=== PATIENT | male | born 1950 | race Caucasian/White ===

== ENCOUNTER 2023-10-28 16:30 | Inpatient (IN) | payer MEDICARE, SELFPAY ==
[2023-10-28 12:27] VITALS: BP 131/57
--- NOTE | 2023-10-28 12:50 | ED.GENMED ---
History of Present Illness
General
Chief Complaint: Anal/Rectal Problem
Source: patient and other (Harlan text note)
Time Seen by Provider: 10/28/23 12:38
Travel History
Have you had any contact with someone who has COVID-19?: No
Do you have any symptoms of coronavirus? Fever > 100 degrees, chills, cough, shortness of breath, sore throat, loss of taste or smell, muscle aches, or headache?: No
History of Present Illness
History of Present Illness:
73-year-old male complaining of rectal pain. Started Friday. Progressive in nature. Difficulty having a bowel movement. Like he went into urinary retention around 4 AM. No fever however some chills at times. No vomiting.
Past History
Past History
ED Past Medical History: Arrthythmia (afib), HTN and Valvular disease
ED Past Surgical History: Cardiac
Social History
Tobacco: Non-smoker
Alcohol: Daily
Personal:
Living: with family
Employment: Employed
Family History
Family History: Hypertension
Review of Systems
Review of Systems
All Other Systems: Not applicable
Constitutional: Reports chills; Denies fever
Respiratory: Reports no symptoms
Cardiac: Reports no symptoms
Phy Exam
Physical Exam
Physical Exam:
GENERAL: Alert and oriented in no apparent distress
EYE: Orbits normal.
NECK: Supple
CARDIAC: Regular rate and rhythm without any obvious murmurs.
LUNGS: Clear breath sounds,normal
ABDOMEN: Soft, no abdominal tenderness. Questionable suprapubic fullness. No rebound or guarding no mass or hernia
NEUROLOGICAL: Alert and oriented , grossly non-focal
SKIN: Warm and dry, no rash or lesion, no discoloration, skin intact.
MUSCULOSKELETAL: No edema,no deformity.Good color
PSYCH: Normal and appropriate interaction.
Course
Orders/Labs/Results
Orders:
Orders
10/28/23 12:47
IV Insert/Care/Rem.- Treatment PRN
10/28/23 12:48
CT Pelvis With Iv Contrast Urgent
Comment:
Reason For Exam: Perirectal pain. Clinical perirectal abscess
10/28/23 13:02
Basic Metabolic Panel Urgent
Complete Blood Count/With Diff Urgent
PTT Urgent
Prothrombin Time Urgent
Blood Culture Q30M
ELENA Source: Blood/Venous
Specimen Description:
Blood Culture Q30M
ELENA Source: Blood/Venous
Specimen Description:
10/28/23 13:25
Ledesma Placement- Treatment ONCE
Reason for insertion: Acute Retention
10/28/23 14:10
Ampicillin/Sulbactam 3 G [Unasyn] 3 gm 0.9% Sodium Chloride 100 ml [Nss] 100 ml IV NOW
10/28/23 14:12
Urinalysis Reflex To Culture Urgent
Date Specimen was Collected: 10/28/23
Time Specimen was Collected: 12:49
Urine Microscopic Reflex Cult Urgent
Abnormal Lab Results
10/28/23 10/28/23
13:02 14:12
RBC 4.03 L 10^6/uL
(4.70-6.10)
Hct 38.4 L %
(39.0-52.0)
MCV 95.3 H fL
(80.0-94.0)
MCH 32.8 H pg
(27.0-31.0)
Absolute Neuts (auto) 6.6 H 10^3/uL
(1.4-6.5)
Absolute Monos (auto) 1.1 H 10^3/uL
(0.1-0.6)
Lymphocytes % 14.0 L %
(20.5-51.1)
Monocytes % 11.6 H %
(1.7-9.3)
PT 20.0 H Sec
(11.4-14.6)
APTT 77.7 H Sec
(23.4-35.0)
BUN 22 H mg/dl
(9-20)
Glucose 105 H mg/dl
(70-99)
Ur Occult Blood Reflex Trace A
(Negative)
Urine RBC 3-6 A /HPF
(0-2)
10/28/23 13:02
10/28/23 13:02
Vital Signs
Initial and Last Documented VS:
Initial Vital Signs
Temp Pulse Resp BP Pulse Ox
98.9 F 56 16 131/57 97
10/28/23 12:27 10/28/23 12:27 10/28/23 12:27 10/28/23 12:27 10/28/23 12:27
Last Documented Vital Signs
Temp Pulse Resp BP Pulse Ox
98.9 F 56 16 131/57 97
10/28/23 12:27 10/28/23 12:27 10/28/23 12:27 10/28/23 12:27 10/28/23 12:27
MDM/Problems Addressed
Differential Diagnosis Includes:
Very suspicious for perirectal abscess. As per colorectal, labs blood cultures antibiotics CT of the pelvis. Bladder scan to evaluate for your urinary retention and may need a catheter
*Radiology
Radiology exam reviewed: radiology read reviewed (2.8 cm perirectal abscess)
*Pulse Oximetry
Patient hypoxic: no
*Critical Care Note
Total Time (30-74mins, 75-104mins- exclusive of procedures): Not Applicable
Data Reviewed
Review of Other/Old Records Reveals: Labs, Records and Discharge Summary
ED Attending Note
-
Portions of this chart may have been created with voice recognition software.� Occasional wrong word or��sound alike� substitutions may have occurred due to the inherent limitations of voice recognition software.
Discharge Plan
Departure
Patient Disposition: Admit
Date of Disposition: 10/28/23
Time of Disposition: 15:36
Presentation/result/management discussed w/ accepting MD/DO: Colorectal surgery
Discharge Problem:
Perirectal abscess
Prescriptions:
No Action
Xarelto 20 MG tablet
20 mg PO QPM
Humira(CF) 40 MG/0.4 ML syringe kit
40 mg SQ Q2W
dofetilide 250 MCG capsule
250 mcg PO Q12 Qty: 60 11RF
metoprolol succinate [Toprol XL] 50 mg Tablet Extended Release 24 Hr
50 mg PO DAILY
metoprolol succinate [Toprol XL] 50 mg Tablet Extended Release 24 Hr
25 mg PO QPM
paroxetine HCl [Paxil] 20 mg Tablet
20 mg PO DAILY
Referrals:
Yimi Goodwin MD [Family Provider] -
Interventions
Interventions:
*Risk Screen - Suicide Last Done: 10/28/23 12:27
*General Assessment Last Done: 10/28/23 12:27
*Neglect/Abuse Screening Last Done: 10/28/23 12:27
ED- Fall Risk Assessment Last Done: 10/28/23 13:39
[2023-10-28 13:15] LABS: % Basophils 0.6 % (0-2); % Eosinophils 0.7 % (0-6); % Immature Granulocytes 0.3 % (0-0.5); % Monocytes 11.6 % (1.7-9.3); % Neutrophils 72.8 % (42.2-75.2); Absolute Basophils 0.1 10^3/uL (0-0.2); Absolute Eosinophils 0.1 10^3/uL (0-0.7); Absolute Lymphocytes 1.3 10^3/uL (1.2-3.4); Absolute Monocytes 1.1 10^3/uL (0.1-0.6); Absolute Neutrophils 6.6 10^3/uL (1.4-6.5); Hematocrit 38.4 % (39.0-52.0); Hemoglobin 13.2 g/dL (13.0-18.0); Mean Corp Hgb Conc. 34.4 g/dL (33.0-37.0); Mean Corpuscular Hgb 32.8 pg (27.0-31.0); Mean Corpuscular Volume 95.3 fL (80.0-94.0); Mean Platelet Volume 8.9 fL (7.4-10.4); Nucleated Red Blood Cells % 0 % (-); Platelet Count 167 10^3/uL (130-400); Red Blood Cell Count 4.03 10^6/uL (4.70-6.10); Red Cell Dist. Width 13.2 % (11.5-14.5)
--- NOTE | 2023-10-28 13:17 | CON.CRS ---
Addendum entered and electronically signed by Yimi Chavis MD 10/29/23 11:38:
I saw and examined the patient.
The PA's note was reviewed and I agree with the note.
Comment:
Patient seen yesterday by me with PA.
History, vitals, labs reviewed. Patient was seen and examined.
73 yo M on Xarelto with apparent perianal/perirectal abscess on exam. Agree with admission by hospitalist for pain control, empiric IV antibiotics, and holding of Xarelto. CT ordered and tentatively posted for OR for I and D on .
Thanks.
Original Note:
Consultation
-
Date/Time Consultation Requested: 10/28/2023, 13:00
Date/Time Consultation Performed: 10/28/23, 13:26
Requesting Provider: Yimi Velarde MD
Performing Provider: Yimi Chavis MD
Reason for Consultation: anal abscess
Medical History
-
Chief Complaint: anal abscess
History of Present Illness:
73-year-old male presents today from his primary care physician. The patient states he felt unwell several weeks ago and about 4 days ago developed new onset of anal pain. He states that his difficulties the bathroom has not had a bowel movement
in 2 days due to pain. He also has noticed a decrease in the ability to urinate and has not peed. He urinated in the past 8 hours which is unusual for him. He was unable to provide a urine sample at his primary care physician's office. He also
noticed a bump around his anal area which started about 3 days ago. He denies any rectal bleeding. He denies any pus. He had chills last week. He has not been on any antibiotics since onset. He denies a family history of colon or rectal cancer.
His last colonoscopy was in [address] Knox which showed mild diverticulosis in the sigmoid colon and in the descending colon. He is currently on Xarelto due to atrial fibrillation and atrial flutter. He also has a history of mitral valve
repair by you pending in March 2010. He is also on Humira due to psoriasis that he takes every 2 weeks and his last dose was last night. He had 1 prior anal abscess in the past which was lanced about 40 years ago. He was seen in clinic earlier
today and recommended he go to the ER given his urinary retention and IV antibiotic, given a lancing was unable to occur due to Xarelto use.
Past Medical History
Past Medical History: HTN and Other (mitral regurgitation, mitral valve prolapse, dysthymic disorder, afib, panic attacks, ETOH abuse)
Past Surgical History: Cardiac (mitral valve repair - 2009 at [facility], cardioversion 05/14/18)
Social History
Tobacco: Former Smoker
Alcohol: Daily
Personal:
Family History
Family History: Reviewed & Not Pertinent
Allergies / Home Medications
Allergy/AdvReac Type Severity Reaction Status Date / Time
No Known Allergies Allergy Verified 10/28/23 12:26
Medication Instructions Recorded Confirmed Type
rivaroxaban 20 mg tablet (Xarelto) 20 mg PO QPM Blood clot 10/28/12 01/23/21 History
prevention/tx
adalimumab 40 mg/0.4 mL 40 mg SQ Q2W Gastrointestinal issue 06/10/18 01/23/21 History
subcutaneous syringe kit
(Humira(CF))
dofetilide 250 mcg capsule 250 mcg PO Q12 Arrhythmia #60 caps 01/25/21 Rx
Review of Systems
-
History Source: Patient
Constitutional: Chills
Abdomen/GI: Other (anal pain)
: Difficulty Voiding
A 10 point review of systems was completed, and was negative except as per HPI.
Physical Exam
Vital Signs
Temp 98.9 F 10/28/23 12:27
Pulse 56 10/28/23 12:27
Resp Rate 16 10/28/23 12:27
Blood pressure 131/57 10/28/23 12:27
SaO2 97 10/28/23 12:27
Lab Results / Allergies
Allergy/AdvReac Type Severity Reaction Status Date / Time
No Known Allergies Allergy Verified 10/28/23 12:26
Physical Exam
General: Well Developed and Well Nourished
Rectal: Tenderness and Other (fluctuance noted around the right posterior aspect, YOSSI deferred, erythema surrounding anus)
Neuro: AO x 3
Data Reviewed
-
Old Records: Reviewed
Assessment / Plan
-
Assessment: 73 yo male with afib and h/o mitral valve repair on Xarelto with acute urinary retention and perianal abscess presents to the ER from clinic
Plan:
1. Recommend CT pelvis to further evaluate extent of abscess.
2. IV antibiotics.
3. Hold Xarelto.
4. Plan for OR on , 10/[address] Chavis for an I+D of the abscess.
5. Ledesma if continues to retain urine.
6. Discussed with patient and .
[2023-10-28 13:24] LABS: INR 1.72
[2023-10-28 13:25] VITALS: BMI 26.2
[2023-10-28 13:26] LABS: APTT 77.7 Sec (23.4-35.0)
[2023-10-28 14:18] LABS: Blood Urea Nitrogen 22 mg/dl (9-20); Calcium 9.2 mg/dl (8.4-10.2); Carbon Dioxide 26 mmol/L (22-30); Chloride 101 mmol/L (98-107); Estimated Creatinine Clearance 50 ml/min; Glucose 105 mg/dl (70-99); Potassium 4.5 mmol/L (3.5-5.1); Sodium 136 mmol/L (135-145); eGFR 58.73
[2023-10-28 14:29] LABS: Urine Albumin Negative (Neg - Trace); Urine Bilirubin Negative (Negative); Urine Character Clear (Clear); Urine Color Yellow; Urine Glucose Negative (Negative); Urine Ketone Negative (Negative); Urine Leukocyte Negative (Negative); Urine Nitrite Negative (Negative); Urine Occult Blood Trace (Negative); Urine Specific Gravity 1.015 (<1.030); Urine Urobilinogen Negative (Neg - 1+)
[2023-10-28] MEDS: UNASYN IV ×2 (14:34→19:48)
[2023-10-28 14:51] LABS: Urine White Cell 0-2 /HPF (0-5)
--- NOTE | 2023-10-28 16:28 | HPS.HSE ---
Addendum entered and electronically signed by Car Garvey MD 10/28/23 16:58:
I saw and examined the patient.
The DINING ROOM SERVER's note was reviewed and I agree with the note.
Patient is 73 year old male afib on tikosyn/xarelto , Psoriasis, MV repair, alcohol abuse, CKDII came in for right gluteal area pain/swelling. Patient noticed a bump near anal area x3 days ago. started to having significant pain. No reported fever.
Patient have a very remote history of perirectal abscess in the past, no MRSA/DM2 h/o. Patient immunosuppressed with Humira use, patient has been on it for last few years for psoriasis.
HEENT: No pallor, cyanosis, or jaundice. Throat clear.
NECK: Supple. No JVD.
RESPIRATORY: Lungs clear to auscultation.
CVS: S1, S2 normal. RRR. No murmur, rub or gallop.
ABDOMEN: Soft, non-tender. No distension. BS+/normal.
EXTREMITIES: No peripheral cyanosis or edema.
: right ischial area gluteal skin abscess
SAMPLE CHECKER: AOx3. No focal deficits.
Annabelle-rectal abscess
Immunosuppressed state
- Involving right gluteal skin over ischial tuberosity
- no signs of sepsis
- hold xarelto for now
- Blood cs collected.
- maintain on unasyn for now
- Oral narc/IV pain medication.
DVT PPX - scd
Full code
Original Note:
Family Physician
-
Family Physician: Yimi Goodwin
Chief Complaint
-
Anal/Rectal Pain
History of Present Illness
Pt is a 73yo M w/ a PMH of Atrial Fibrillation, Psoriasis and Mitral Valve repair (2009) who is presenting to the ED c/o severe perirectal pain x 4 days. He states he was seen by his PCP this morning and was sent to a specialist who advised him to
come here. He states he began experiencing severe anal pain 4 days and tried Preparation H cream which did not seem to improve his symptoms. He states he noticed a 'bump' near his anus x 3 days ago.He reports a history of perirectal abscess several
years ago which was lanced and resolved without sequelae since. He states he has not had a bowel movement in 2 days as a result of the pain and admits to constipation x 3 days. He admits to difficulty voiding x 3 days stating this is worse today. He
states he has not been able to void urine at all since last night. He admits to chills that wax and wane x 1 week. He admits to one episode of diarrhea within the last week. He denies rectal bleeding or purulent discharge, abdominal pain, decreased
appetite or fluid intake. He denies blood in his urine. He denies history of MRSA infection, or Diabetes. He denies recent antibiotic use. He denies recent change in medications.
Medical History
Past Medical History
Past Medical History: Reports Other
Additional Past Medical History:
Paroxysmal Atrial Fibrillation
BPH
Psoriasis
Anxiety/Depression/Panic Disorder
Past Surgical History: Reports Other
Additional Past Surgical History:
Mitral Valve Repair
Social History
Tobacco: Former Smoker (Quit 20 years ago)
Alcohol: Daily (2-3 beers nightly)
Family History
Family History: Not pertinent
Allergies / Home Medications
Allergies reflects when Allergies were last updated in [facility].
Home Medications with original date entered in [facility]
Allergy/Medication List:
Allergies
Allergy/AdvReac Type Severity Reaction Status Date / Time
No Known Allergies Allergy Verified 10/28/23 12:26
Home Medications
rivaroxaban 20 mg tablet (Xarelto) 20 mg PO QPM Blood clot prevention/tx 10/28/12
adalimumab 40 mg/0.4 mL subcutaneous syringe kit (Humira(CF)) 40 mg SQ Q2W Gastrointestinal issue 06/10/18
dofetilide 250 mcg capsule 250 mcg PO Q12 Arrhythmia #60 caps 01/25/21
metoprolol succinate 50 mg tablet,extended release 24 hr (Toprol XL) 25 mg PO QPM 10/28/23
metoprolol succinate 50 mg tablet,extended release 24 hr (Toprol XL) 50 mg PO DAILY 10/28/23
paroxetine HCl 20 mg tablet (Paxil) 20 mg PO DAILY 10/28/23
Review of Systems
-
A 12 point ROS was completed and negative except as noted: Yes
Constitutional: Reports Chills; Denies Fever
Respiratory: Denies Cough or Trouble Breathing
Cardiac: Denies Chest Pain or Palpitations
Abdomen/GI: Reports Constipated and Pain
Physical Exam
Vital Signs
Vital Signs
Temp Pulse Resp BP Pulse Ox
98.9 F 56 16 131/57 97
10/28/23 12:27 10/28/23 12:27 10/28/23 12:27 10/28/23 12:27 10/28/23 12:27
Physical Exam
General: Comfortable and Conversant
HEENT: Anicteric and Moist mucous membranes
Respiratory: Clear and Non Labored Respirations
Cardiac: S1/S2 and Regular Rhythm
GI: Soft and Non Tender
Rectal: Other (Annabelle-anal erythema)
Genito-urinary: Ledesma
Musculoskeletal: No Clubbing, No Cyanosis and No Edema
Skin: Warm and Dry
Neuro: Awake, Alert, Oriented and Nonfocal/grossly intact
Psych: Calm
Laboratory Results
-
10/28/23 13:02
10/28/23 13:02
Laboratory Results
PT 20.0 Sec (11.4-14.6) H 10/28/23 13:02
INR 1.72 10/28/23 13:02
APTT 77.7 Sec (23.4-35.0) H 10/28/23 13:02
Data Reviewed
-
CT Scan: Report Reviewed by me
Lab Data: Labs Reviewed by me
Impression/Plan
-
Annabelle-Anal Abscess
-Consult Colorectal Surgery
-Continue Unasyn
-Tentative Plan for OR on
Urinary Retention
-Ledesma Placed in ED
Paroxysmal Atrial Fibrillation
-Xarelto on hold for planned procedure
-Continue Tikosyn and Toprol XL for rate/rhythm control
-Monitor QTC with Daily ECG
Anxiety/Depression/Panic Disorder
-Continue Paxil
Psoriasis
-Hold Humira in setting of acute infection
DVT proph: SCDs until able to resume Xarelto
Code Status: Full Code
[2023-10-28 16:30] VITALS: BP 127/59
[2023-10-28] MEDS: DILAUDID 0.5 MG IV (17:34)
[2023-10-28 17:40] VITALS: BP 116/69; BMI 25.2
[2023-10-28] MEDS: TOPROL XL 25 MG PO (18:05)
[2023-10-28 18:53] VITALS: BMI 25.2
[2023-10-28 19:32] VITALS: BP 112/60
[2023-10-28] MEDS: TIKOSYN 250 MCG PO (19:44)
[2023-10-28] MEDS: ROXICODONE 5 MG PO (19:52)
--- NOTE | 2023-10-28 21:51 | PTCARENOTE ---
at 2119 pt flipped into afib (has hx). pt is resting trying to sleep. HR sustaining above 100, going as high as 140s. had standing order of tikosyn, given at 194. ALEXANDRE Fischer notified. FINANCIAL SOLUTIONS ADVISOR put in PRN order IV lopressor is HR sustained >110.
[2023-10-28] MEDS: LOPRESSOR 5 MG IV (21:53)
[2023-10-28] MEDS: TYLENOL 650 MG PO (23:39)
[2023-10-28 23:46] VITALS: BP 103/68
[2023-10-29] VITALS (7 sets, daily range): BP systolic 89–113; BP diastolic 48–68
[2023-10-29] MEDS: UNASYN IV ×4 (00:59→19:39)
--- NOTE | 2023-10-29 04:25 | DOWNTIME ---
There was a [employer]am Dredge Boat Captain Downtime on 10/29/2023 from 0111 to 10/29/2023 at 0405. Downtime documentation of patient's care, including medication administrations, has been reconciled in the electronic record per guidelines. Refer to the
patient's paper chart under the miscellaneous tab to see printed paper medication records and downtime forms.
[2023-10-29] MEDS: ROXICODONE 5 MG PO ×3 (08:19→17:40)
[2023-10-29] MEDS: NSS 1000 IV ×2 (08:36→17:36)
[2023-10-29] MEDS: NSS 500 IV (08:36)
--- NOTE | 2023-10-29 10:04 | W.PN.CRS1 ---
Today's Communication / Plan
-
OR tomorrow
Colace and MiraLAX
Continue antibiotics
Assessment/Plan
-
Assessment: 73 yo male with afib and h/o mitral valve repair on Xarelto with acute urinary retention and anal pain, with normal WBC, Tmax of 100.9 last night, and a posterior peritoneal abscess measuring up to 2.[address]
Plan:
1. Start on a regular diet today and n.p.o. at midnight.
2. Continue IV antibiotics.
3. Continue to hold Xarelto.
4. Plan for OR on , 10/[address] Chavis for an I+D of the abscess. Likely to occur mid afternoon.
5. Ledesma in place due to urinary retention.
6. Start on Colace twice daily and MiraLAX daily.
Subjective Data
Subjective Data
Date of Service: October 29, 2023
Patient states he still has soreness around the ears. He denies nausea or vomiting. He has not had a bowel movement yet.
Objective Data
-
Vital Signs
Temp Pulse Resp BP Pulse Ox
98.2 F 104 19 105/57 95
10/29/23 07:00 10/29/23 09:23 10/29/23 07:00 10/29/23 09:23 10/29/23 07:00
Intake & Output
10/28/23 10/29/23 10/30/23
06:59 06:59 06:59
Intake Total 1200 / 1200
Output Total 600 / 600
Balance 600 / 600
Intake:
Oral fluids 1200 / 1200
Output:
Urine, Ledesma 600 / 600
Lab Results
10/28/23 13:02
10/28/23 13:02
Physical Exam
-
General: No Acute Distress and AOx3
Abdomen: Soft, Non Distended and Non Tender
Skin: Warm and Dry
Data Reviewed
-
CT Scan: Image Reviewed and Report Reviewed
[2023-10-29] MEDS: TOPROL XL 50 MG PO (10:14)
[2023-10-29] MEDS: PAXIL 20 MG PO (10:14)
[2023-10-29] MEDS: TIKOSYN 250 MCG PO ×2 (10:14→19:39)
[2023-10-29] MEDS: COLACE 100 MG PO ×2 (11:05→19:39)
[2023-10-29] MEDS: MIRALAX 17 GRAMS PO (11:05)
[2023-10-29] MEDS: DULCOLAX 10 MG PO (13:08)
--- NOTE | 2023-10-29 14:31 | W.PN.HOSP.TC ---
Today's Communication/Plan
-
for OR tomorrow
continue other meds
Assessment / Plan
Assessment / Plan
Annabelle-rectal abscess
Immunosuppressed state
- Involving right gluteal skin over ischial tuberosity
- no signs of sepsis
- hold Xarelto for now
- Blood cs collected.
- maintain on unasyn for now
- Oral narc/IV pain medication.
Urinary Retention
-Ledesma Placed in ED
Paroxysmal Atrial Fibrillation
-Xarelto on hold for planned procedure
-Continue Tikosyn and Toprol XL for rate/rhythm control
-Monitor QTC with Daily ECG
Anxiety/Depression/Panic Disorder
-Continue Paxil
Psoriasis
-Hold Humira in setting of acute infection
DVT PPX - scd
Full code
Anticipated Discharge: 24 - 48 hours
Subjective/Interval History
-
Date of Service: October 29, 2023
Resting comfortably in bed
complaining of pain in gluteal area
afebrile
Objective Data
-
Vital Signs:
Vital Signs
Temp Pulse Resp BP Pulse Ox
98.7 F 95 18 95/66 94
10/29/23 11:00 10/29/23 11:00 10/29/23 11:00 10/29/23 11:00 10/29/23 11:00
I&O
10/28/23 10/29/23 10/30/23
06:59 06:59 06:59
Intake Total 1200 / 1200
Output Total 600 / 600
Balance 600 / 600
Review of Systems
-
Respiratory: Reports No Symptoms
Cardiac: Reports No Symptoms
Abdomen/GI: Reports No Symptoms
Physical Exam
-
General: No Apparent Distress and Comfortable
HEENT: Negative Oxygen
Respiratory: Clear to Auscultation
Cardiac: Regular Rhythm and S1/S2; Negative Murmur or Rub
Musculoskeletal: No Edema
Neuro: Awake, Alert, Oriented, No Motor Deficits and Nonfocal/Grossly Intact
Psych: Calm
--- NOTE | 2023-10-29 16:03 | CM ---
Reviewed chart, met with patient to obtain information for assessment. Patient stated that he lives with his in a one story home with one step to enter. He described himself as independent with all ADLs, self care, dressing, bathing and
toileting. He ambulates without the use of device. He denied any DME in his home. 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
Patient has never had VN services or he stated that he did in the distant past but does not recall the agency that he used.
He has never been to a SNF.
He has a prescription plan and uses the [facility] pharmacy in [place] on [id number]
His PCP is Dr. Yimi Goodwin.
Patient feels physically that he is at baseline and would like to return home at discharge.
Plan: Case management will continue to follow and assist with discharge planning. Patient would like to go home when stable.
[2023-10-29] MEDS: TOPROL XL 25 MG PO (17:40)
[2023-10-29] MEDS: MILK OF MAGNESIA 30 ML PO (18:24)
[2023-10-29] MEDS: TYLENOL 650 MG PO (19:38)
[2023-10-30] VITALS (12 sets, daily range): BP systolic 81–137; BP diastolic 49–68
[2023-10-30] MEDS: UNASYN IV ×5 (02:35→21:27)
--- NOTE | 2023-10-30 03:03 | PTCARENOTE ---
at 0230 tele alarm went off for pts HR dropping to 39 on monitor. HR went right back up to 90-110s. pt is in afib. per pt, no hx of HR dropping down. ALEXANDRE Mobley notified, asked to get EKG early (due at 0600). EKG showed afib with RVR and RBBB. BP
was 104/59. pt asymptomatic.
[2023-10-30] MEDS: NSS 1000 IV ×2 (03:18→15:58)
--- NOTE | 2023-10-30 03:51 | W.PN.UPDATE ---
Update Note
Progress Note Update
Patient had 2 episodes of bradycardia�during night time, hr down to 30s with 2.28 pauses. Per staff, nurse had bradycardia the night before as well.�Patient is asymptomatic. Discussed the case with attending physician this am for further eval as
needed. �
[2023-10-30 07:13] LABS: Hematocrit 31.7 % (39.0-52.0); Hemoglobin 11.1 g/dL (13.0-18.0); Mean Corpuscular Hgb 33.1 pg (27.0-31.0); Mean Corpuscular Volume 94.6 fL (80.0-94.0); Platelet Count 128 10^3/uL (130-400); Red Blood Cell Count 3.35 10^6/uL (4.70-6.10); Red Cell Dist. Width 13.1 % (11.5-14.5); White Blood Cell Count 7.3 10^3/uL (4.8-10.8)
[2023-10-30] MEDS: PAXIL 20 MG PO (07:37)
[2023-10-30] MEDS: COLACE 100 MG PO ×2 (07:37→21:19)
[2023-10-30] MEDS: MIRALAX 17 GRAMS PO (07:37)
[2023-10-30] MEDS: TIKOSYN 250 MCG PO ×2 (07:37→21:18)
[2023-10-30 07:41] LABS: Blood Urea Nitrogen 17 mg/dl (9-20); Calcium 7.6 mg/dl (8.4-10.2); Carbon Dioxide 24 mmol/L (22-30); Chloride 105 mmol/L (98-107); Estimated Creatinine Clearance 55 ml/min; Glucose 105 mg/dl (70-99); Potassium 3.9 mmol/L (3.5-5.1); Sodium 136 mmol/L (135-145); eGFR > 60.00
[2023-10-30] MEDS: TOPROL XL PO (07:41)
[2023-10-30] MEDS: ROXICODONE 10 MG PO (09:48)
--- NOTE | 2023-10-30 12:49 | W.PN.HOSP.TC ---
Today's Communication/Plan
-
hold HS metoprolol
nocturnal o2 test ordere
for OR today
continue abx
Assessment / Plan
Assessment / Plan
Annabelle-rectal abscess
Immunosuppressed state
- Involving right gluteal skin over ischial tuberosity
- no signs of sepsis
- hold Xarelto for now
- Blood cs collected.
- maintain on Unasyn for now
- Oral narc/IV pain medication.
Episodes of bradycardia
Pause of 2.25s
- with heart rate dropping in 30-40 on tele for last 2 night, Pause of 2.25s - asymptomatic
- hold night time of metoprolol
- nocturnal o2 test ordered
Paroxysmal Atrial Fibrillation
-Xarelto on hold for planned procedure
-Continue Tikosyn and Toprol XL for rate/rhythm control
-Qtc 487ms today in AM
Urinary Retention
-Ledesma Placed in ED
Anxiety/Depression/Panic Disorder
-Continue Paxil
Psoriasis
-Hold Humira in setting of acute infection
Constipation
- improved with laxatives
DVT PPX - scd
Full code
Anticipated Discharge: 24 - 48 hours
Subjective/Interval History
-
Date of Service: October 30, 2023
Reported episodes of bradycardia with heart rate in 30-40 on tele for last 2 night, Pause of 2.25s - asymptomatic
no other issues
Objective Data
-
Labs:
Laboratory Results
10/30/23
06:54
WBC 7.3
Hgb 11.1 L
Hct 31.7 L
Plt Count 128 L D
Sodium 136
Potassium 3.9
Chloride 105
Carbon Dioxide 24
BUN 17
Creatinine 1.2
Glucose 105 H
Calcium 7.6 L D
Vital Signs:
Vital Signs
Temp Pulse Resp BP Pulse Ox
98.8 F 56 18 95/52 92
10/30/23 11:00 10/30/23 11:00 10/30/23 11:00 10/30/23 11:00 10/30/23 11:00
I&O
10/29/23 10/30/23 10/31/23
06:59 06:59 06:59
Intake Total 1200 / 1200 660 / 660
Output Total 600 / 600 1100 / 1100
Balance 600 / 600 -440 / -440
Review of Systems
-
Respiratory: Reports No Symptoms
Cardiac: Reports No Symptoms
Abdomen/GI: Reports No Symptoms
Physical Exam
-
General: Comfortable
HEENT: Negative Oxygen
Respiratory: Clear to Auscultation
Cardiac: Regular Rhythm and S1/S2; Negative Murmur or Rub
Musculoskeletal: No Edema
Neuro: Awake, Alert, Oriented, No Motor Deficits and Nonfocal/Grossly Intact
Psych: Calm
--- NOTE | 2023-10-30 13:26 | PTCARENOTE ---
Pt sent to OR via bed, AAOX3. at bedside and accompanied pt. Second set of CHG was done with antiseptic nasal swab.
--- NOTE | 2023-10-30 15:10 | W.IMMPOSTOP ---
Surgical Immed Post Op Note
-
Primary Surgeon: Shayy hCavis MD
Assisting Surgeon: CAMILLA Leach
Pre-op Diagnosis: perirectal abscess
Post-op Diagnosis: same
Procedure Performed: incision and drainage perirectal abscess
Anesthesia Type: general plus local
Specimen / Cultures: abscess fluid
Estimated Blood Loss: 25 cc
Complications: no immediate
Operative Findings: posterior perirectal abscess
Wound packed with iodoform and covered in 4 by 4s and mesh panties.
Will send back to med surg and resume diet.
--- NOTE | 2023-10-30 16:50 | PTCARENOTE ---
Patient transferred to [address] [place] [address] from pacu post incision and drainage of mercedes rectal abscess.The patient is alert but still drowsy.he reports his pain at a 4 out of 10.Post op dressing is intact with a small amount of drainage.Vital signs are
stable.The patient is in his bed with the call gallagher in reach.
--- NOTE | 2023-10-30 22:34 | PTCARENOTE ---
Replaced saturated mercedes anal abscess drsg w sterile 4x4 and ABD pad, packing left in place. assessment ongoing.
[2023-10-31] MEDS: NSS 1000 IV ×2 (01:34→10:38)
[2023-10-31 03:23] VITALS: BP 112/71
[2023-10-31] MEDS: UNASYN IV ×2 (04:08→10:37)
[2023-10-31 05:01] LABS: Hematocrit 32.6 % (39.0-52.0); Hemoglobin 11.1 g/dL (13.0-18.0); Mean Corpuscular Hgb 32.8 pg (27.0-31.0); Mean Corpuscular Volume 96.4 fL (80.0-94.0); Mean Platelet Volume 9.2 fL (7.4-10.4); Platelet Count 148 10^3/uL (130-400); Red Blood Cell Count 3.38 10^6/uL (4.70-6.10); Red Cell Dist. Width 12.8 % (11.5-14.5); White Blood Cell Count 6.1 10^3/uL (4.8-10.8)
[2023-10-31 05:19] LABS: Blood Urea Nitrogen 18 mg/dl (9-20); Calcium 7.5 mg/dl (8.4-10.2); Carbon Dioxide 24 mmol/L (22-30); Chloride 108 mmol/L (98-107); Estimated Creatinine Clearance 60 ml/min; Glucose 148 mg/dl (70-99); Potassium 4.3 mmol/L (3.5-5.1); Sodium 136 mmol/L (135-145); eGFR > 60.00
--- NOTE | 2023-10-31 05:48 | PTCARENOTE ---
Ledesma catheter removed per orders without issue at 0545. Pt given time and amount, urinal left at the bedside.
[2023-10-31 07:40] VITALS: BP 105/63
[2023-10-31] MEDS: TOPROL XL PO (08:23)
[2023-10-31] MEDS: TIKOSYN 250 MCG PO (08:24)
[2023-10-31] MEDS: PAXIL 20 MG PO (08:24)
[2023-10-31] MEDS: COLACE 100 MG PO (08:24)
[2023-10-31] MEDS: MIRALAX 17 GRAMS PO (08:24)
[2023-10-31] MEDS: ROXICODONE 10 MG PO (08:34)
--- NOTE | 2023-10-31 10:15 | W.PN.CRS1 ---
Today's Communication / Plan
-
Okay for xarelto
Sitz bath 3 times daily, dressing change daily/as needed
Okay for DC, follow-up with Dr. Chavis in 1 to 2 weeks
Assessment/Plan
-
73-year-old male with mitral regurgitation and MVP s/p mitral valve repair in 2009, A-fib (on Xarelto), EtOH use who presents with perianal pain for several days, CT showing perianal abscess; last dose of Xarelto was p.m. of 10/27; admitted for IV
antibiotics and holding his AC for I&D in the OR tomorrow
POD 1 incision and drainage of perianal abscess
Doing well, pain controlled
AFVSS, packing removed, no further purulent drainage but still with some surrounding blanching erythema
WBC 6.1
�Okay for regular diet today
� Would complete a 7-day course of antibiotics due to associated cellulitis
� Continue pain control with Tylenol and oxycodone
� Continue bowel regiment
� Okay to restart Xarelto
� Appreciate hospitalist for management of comorbidities including A-fib
Dispo�okay for DC from [facility] standpoint
-continue sitz bath's 3 times daily,dressing changes daily and PRN (no further packing needed), follow-up with Dr. Chavis in 1-2 weeks
Subjective Data
Subjective Data
Date of Service: October 31, 2023
No overnight events.
Pain controlled.
Denies nausea/vomiting. Tolerating diet.
+flatus +BMs +voiding (Ledesma removed this morning)
Objective Data
-
Vital Signs
Temp Pulse Resp BP Pulse Ox
97.7 F 55 15 105/63 96
10/31/23 07:40 10/31/23 08:23 10/31/23 07:40 10/31/23 08:23 10/31/23 07:40
Intake & Output
10/30/23 10/31/23 11/01/23
06:59 06:59 06:59
Intake Total 660 / 660 2280 / 2280
Output Total 1100 / 1100 1375 / 1375 100 / 100
Balance -440 / -440 905 / 905 -100 / -100
Intake:
Oral fluids 660 / 660 540 / 540
IV fluids (Total) 0 / 0 1500 / 1500
normosol 100 / 100
IV piggybacks 0 / 0 240 / 240
Output:
Urine, Ledesma 500 / 500 1375 / 1375
Urine, Voided 600 / 600 100 / 100
Lab Results
10/31/23 04:08
10/31/23 04:08
Physical Exam
-
General: No Acute Distress and AOx3
HEENT: Grossly Normal
Abdomen: Soft, Non Distended and Non Tender
Rectal: Other (Perirectal wound open, packing removed, no purulent drainage, mild surrounding blanching erythema)
Skin: Warm and Dry
--- NOTE | 2023-10-31 11:06 | W.PN.HOSP.TC ---
Today's Communication/Plan
-
d/c home
Assessment / Plan
Assessment / Plan
Annabelle-rectal abscess
Immunosuppressed state
- Involving right gluteal skin over ischial tuberosity
- s/p I&D by [facility]
- Blood cs neg
- d/c on augmentin course
- sitz bath TID for next 5 days
- f/u with dr gergg in office in 1-2 week
Episodes of bradycardia
Pause of 2.25s
- with heart rate dropping in 30-40 on tele for last 2 night, Pause of 2.25s - asymptomatic
- nocturnal o2 test didnt show significant hypoxia events
- resume back on home regimen of meds, patient f/u with Dr Thompson next month
Paroxysmal Atrial Fibrillation
-Xarelto to be resumed back
-Continue Tikosyn and Toprol XL for rate/rhythm control
-Qtc remains < 500ms this admit on daily ekg
Urinary Retention
-Ledesma Placed in ED
Anxiety/Depression/Panic Disorder
-Continue Paxil
Psoriasis
-Hold Humira in setting of acute infection
Constipation
- improved with laxatives
DVT PPX - scd
Full code
More than 30 minutes spent in discharge including
Final examination of the patient
Summarizing hospital stay
Instructions for continuing care to all relevant caregivers
Preparation of discharge records, prescriptions, and referral forms
Total time spent (in minutes): 40 mins
Anticipated Discharge: Today
Subjective/Interval History
-
Date of Service: October 31, 2023
no complains overnight
afebrile overnight
Objective Data
-
Labs:
Laboratory Results
10/31/23
04:08
WBC 6.1
Hgb 11.1 L
Hct 32.6 L
Plt Count 148
Sodium 136
Potassium 4.3
Chloride 108 H
Carbon Dioxide 24
BUN 18
Creatinine 1.1
Glucose 148 H
Calcium 7.5 L
Vital Signs:
Vital Signs
Temp Pulse Resp BP Pulse Ox
97.7 F 55 15 105/63 96
10/31/23 07:40 10/31/23 08:23 10/31/23 07:40 10/31/23 08:23 10/31/23 07:40
I&O
10/30/23 10/31/23 11/01/23
06:59 06:59 06:59
Intake Total 660 / 660 2280 / 2280
Output Total 1100 / 1100 1375 / 1375 100 / 100
Balance -440 / -440 905 / 905 -100 / -100
Review of Systems
-
All other systems: Reviewed and negative
Physical Exam
-
General: Comfortable
HEENT: Negative Oxygen
Respiratory: Clear to Auscultation
Cardiac: Regular Rhythm and S1/S2; Negative Murmur or Rub
Musculoskeletal: No Edema
Neuro: Awake, Alert, Oriented, No Motor Deficits and Nonfocal/Grossly Intact
Psych: Calm
--- NOTE | 2023-10-31 11:53 | CM ---
Chart reviewed. Spoke with pt
Pt for discharge today
Reports will have ride home
Discussed IMM
Plan - d/c to previous setting - no needs
[2023-10-31 13:11] VITALS: BP 99/61
--- NOTE | 2023-11-01 07:12 | W.DCSUMMARY ---
Discharge Summary
Discharge Data
Date of Admission: 10/28/23
Date of Discharge: 10/31/23
-
Pending Results: No
Hospital Course
Discharging Physician : Dr Car Garvey
Disposition : To home
Primary care physician : Dr Yimi Goodwin
Principal Discharge diagnosis :
Perirectal abscess
Episode of bradycardia
Acute urinary retention
Chronic Discharge diagnosis :
Paroxysmal atrial fibrillation on dofetilide
Anxiety/depression
h/o of psoriasis
Hospital Course :
Patient is a 73-year-old male with above-mentioned past medical history came to ER with new onset of right perirectal area pain. Patient had some pain in perirectal area followed by development of some swelling. In ER evaluation showing patient
likely having a perirectal abscess. CT pelvis confirmed the findings. Colorectal surgery was consulted for I&D. Patient on xarelto with history of A-fib and was held. After 48 hours of Xarelto washout patient was taken to the OR for I&D. Postop
course remained uncomplicated. Patient was maintained on IV Unasyn empirically and was discharged on short course of Augmentin. Patient to follow-up with colorectal surgery in office.
Patient noted to having episode of bradycardia with less than 3-second pauses on telemetry during night. Patient remained asymptomatic. Nocturnal oxygen test did not show significant hypoxia events. Patient was resumed back on home regimen of
medication at discharge. Patient follows up with Dr. Thompson and plan to see him in office next month.
Important imaging findings :
None
Procedure findings :
None
Discharge Plan
-
Patient Disposition: Home (Routine Discharge)
Discharge Diagnosis/Procedures: Annabelle-rectal skin abscess, Nocturnal bradycardia
Condition: Fair
Diet: Regular
Activity: As tolerated
Driving Restrictions: No driving for 24 hours
Bathing Restrictions: OK to Shower
Wound Care: Sitz baths twice a day for 7 days with warm water, 10 minutes at a time.
Daily dressing changes with gauze and tape. Okay to remove to shower.
Daily fiber supplement.
Stool softeners as needed.
Instructions: Psyllium, How to Do a Sitz Bath
Referrals:
Yimi Chavis MD [Active] - in one to two weeks
Yimi Goowdin MD [Family Provider] - in one week
Nguyễn Thompson MD [Active] -
Prescriptions:
New
polyethylene glycol 3350 [HealthyLax] 17 gram Powder In Packet
17 g PO DAILY Qty: 15 0RF
oxycodone 5 mg Tablet
5 mg PO Q4HPRN PRN (Reason: mod sev pain) Qty: 14 0RF
amoxicillin-pot clavulanate 875-125 mg tablet
1 tab PO BID Qty: 10 0RF
Continued
Xarelto 20 MG tablet
20 mg PO QPM
Humira(CF) 40 MG/0.4 ML syringe kit
40 mg SQ Q2W
dofetilide 250 MCG capsule
250 mcg PO Q12 Qty: 60 11RF
metoprolol succinate [Toprol XL] 50 mg Tablet Extended Release 24 Hr
50 mg PO DAILY
metoprolol succinate [Toprol XL] 50 mg Tablet Extended Release 24 Hr
25 mg PO QPM
paroxetine HCl [Paxil] 20 mg Tablet
20 mg PO DAILY
Discharge Orders:
Discharge Patient (As Directed); Ordered 10/31/23
Ordered By: Cra Garvey
Discharge Date and Time
Discharge Date/Time: 10/31/23 14:19
== END 2023-10-31 14:19 | disposition home or self-care (01) | DRG 345 ==
LOC: 2 SOUTH 16:30
PROVIDERS: ADMITTING PHYSICIAN Hospitalist; CONSULT PHYSICIAN Surgery; EMERGENCY PHYSICIAN Emergency Medicine; FAMILY PHYSICIAN Family Medicine
PROC: 0D9P0ZZ Drainage of Rectum, Open Approach (ICD-10-PCS; 2023-10-30)
DX: K61.1 Rectal abscess (principal); D84.821 Immunodeficiency due to drugs; N40.1 Benign prostatic hyperplasia with lower urinary tract symptoms; R33.8 Other retention of urine; I48.0 Paroxysmal atrial fibrillation; Z79.01 Long term (current) use of anticoagulants
CPT/HCPCS: 72193; 80048; 81003; 81015; 85025; 85027; 85610; 85730; 87040; 87070; 87075; 87076; 87077; 87185; 87186; 87205; 93005; 94762; 96365; 99285; Q9967

== ENCOUNTER → 2025-03-09 11:29 | Outpatient (REF) | payer MEDICARE, SELFPAY | LOC: HWRAD 11:29 | PROVIDERS: ATTENDING PHYSICIAN Family Medicine | DX: R91.1 Solitary pulmonary nodule (principal) | CPT/HCPCS: 71250 ==